=== PATIENT | female | born 1945 | race Caucasian/White ===

== ENCOUNTER 2017-04-24 00:03 | Day surgery (SDC) | payer MEDICARE ==
[2017-04-24] VITALS (13 sets, daily range): BP systolic 93–140; BP diastolic 43–71; PULSE 62–81; RESP 13–20; O2SAT 93–96
[~2017-04-24] VITALS: Ht 157.5 cm; Wt 88.6 kg
[~2017-04-24 00:03] MED LIST: CHOL400T PO; CREST10T PO; FLUO20CA25 PO; LIDO IV; LISI-567 PO; METO25TA6 PO; METO50TA3 PO; NITR0.4T6 SL; OXYC1TAB24 PO; PANT20TA2 PO; TRAM50TA2 PO; WARF4TAB6 PO
[2017-04-24 08:21] LABS: BASOPHILS % (AUTO) 0.3 % (0-3); EOSINOPHILS % (AUTO) 1.6 % (0-5); MONOCYTES % (AUTO) 7.7 % (4-12); Mean Corpuscular Hemoglobin 27.8 pg (27.0-35.0); NEUTROPHILS % (AUTO) 82.8 % (40-74); Platelet Count 194 bil/L (150-400)
[2017-04-24 08:39] LABS: INR 1.03 ratio
[2017-04-24] MEDS ORDERED: ONDA4SOL PO (08:47)
[2017-04-24] MEDS ORDERED: Ondansetron 2 mg/mL 2 mL Inj IVPUSH PRN (09:10)
[2017-04-24] MEDS ORDERED: Heparin 10,000 Unit/1,000 mL NS Premix IV ONE (09:37)
[2017-04-24] MEDS ORDERED: Nitroglycerin 50,000 mcg/250 mL D5W Premix IV ONE (09:37)
[2017-04-24] MEDS ORDERED: Heparin 1,000 Unit/mL 10 mL Inj ONE ×2 (09:37→10:51)
[2017-04-24] MEDS ORDERED: Heparin 1,000 Units/500 mL NS Premix IV ONE (09:37)
--- NOTE | 2017-04-24 09:44 | NUR ---
Pre heart cath.- Patient arrived to [facility] with . Alert and oriented. Denies complaints. NPO since last night except for meds. Explained procedure and plan of care.
[2017-04-24] MEDS ORDERED: fentaNYL-PF 50 mCg/mL 2 mL Inj ONE (10:06)
[2017-04-24] MEDS ORDERED: Atropine 1 mg/10 mL (Code) Syringe ONE (10:53)
--- NOTE | 2017-04-24 11:05 | PCM.CVCATH ---
Cardiac Cath Report Date of Service Apr 24, 2017 Primary Indication Angina, abnormal stress test Procedure coronary angiography, left heart cath Vascular Access Right radial artery using 5 Fr sheath, closure with TR band. Diagnostic Catheters Left main: [place] 4.0, 5 Fr RCA: [place] 4.0, 5 Fr Procedure Details Coronary angiography details: The patient was brought to the cardiac catheterization lab in the fasting state. Patient was laid supine on the cardiac catheterization table and the right forearm was prepped and draped in the usual sterile fashion. One percent Xylocaine was infiltrated over the right radial artery. Vascular access was then achieved under ultrasound guidance. Guide wire was used to advance the catheter through the sheath and up into aortic sinuses. After coronary angiography was completed, guide wire was advanced through the catheter ahead of the tip of the catheter and the guide wire along with the catheter were pulled together out of the sheath. Medications/Fluoro Time Medications/fluoroscopy/contrast administered: see total in cath tech report Blood loss: 5 mls Findings 1) Coronary angiography: Right dominance a. Left main is short and normal caliber with mild luminal irregularities. b. LAD is normal caliber wrap around vessel with mild luminal irregularities. The ostium of first diagonal artery has 30-40% stenosis. c. LCx is medium caliber with mild luminal irregularities. LCx gives rise to three obtuse marginal (OM) arteries. The high OM1 and OM2 are small caliber with diffuse disease. The OM3 is a medium caliber vessel with 80-90% tubular stenosis proximally. d. RCA is normal caliber with 80% stenosis proximally and a patent mid-RCA stent. 2) Left Heart catheterization: a. LVEDP is mildly elevated at 15-20 mmHg. b. No significant transaortic gradient on catheter pull-back. Complications There were no periprocedural complications identified. 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 Recommendations Refer to Interventional cardiology for PCI of the proximal RCA and consider staged PCI of the 3rd obtuse marginal artery if symptoms persist. copies to: Emiliana Layne MD,Seema Hendrickson MD Apr 24, 2017 11:05
--- NOTE | 2017-04-24 13:00 | NUR ---
On entering room to check on patient for patient's promary nurse, observed large hematoma proximal to TR band. Patient said said she was about to call for a nurse as she and her observed the swelling and she is feeling some pain and tightness in her upper forearm. Dr Stuart closeby and called into room.Instructed by Dr Stuart to remove TR band and give protamine [address] Dedra brewer.
[2017-04-24] MEDS ORDERED: Protamine Sulfate 10 mg/mL 5 mL Inj ONE (13:05)
--- NOTE | 2017-04-24 13:10 | NUR ---
Dr Colmenares informed and that Dr Stuart has given us some orders.
--- NOTE | 2017-04-24 13:21 | DI95 ---
[place] [address] INTERVENTIONAL CARDIAC CATHETERIZATION PATIENT: ANNETTA CULLEN : 1945 MR#: [id number] ADMIT: 04/24/2017 JOB ID: [id number] DATE: 04/24/2017 PATIENT PROFILE: The patient is a 72-year-old lady with history of paroxysmal atrial fibrillation , on chronic anticoagulation. She presented with angina pectoris. PROCEDURE: Balloon angioplasty and stenting to the proximal right coronary artery. VASCULAR CLOSURE DEVICE: None. COMPLICATION: None. METHOD: Following diagnostic coronary angiogram performed by Dr. Francois, additional heparin of 7,000 units were given. Aspirin 325 mg and Brilinta 180 mg were given. A 5-[place] JR-4 guide was advanced to the right coronary ostium. A Run-through wire was placed inside the right coronary artery. The proximal right coronary artery lesion was pre-dilated with a 2.0 x 15 mm balloon. A Xience 3.0 x 12 mm stent was placed inside the lesion and deployed at 10 atmospheres for 20 seconds. Final angiogram was obtained. Following sheath removal, hemostasis was achieved by using a TR band. The patient tolerated the procedure well. She was transferred to [facility] in good condition. TOTAL CONTRAST USED: 70 cc. FLUOROSCOPY TIME: 6.5 minutes. RESULTS: Successful balloon angioplasty and stenting to the tight proximal right coronary artery lesion by deploying one drug eluting stent (3.0 x 12 mm) to achieve an excellent angiographic result with JUNE-3 flow distally. SAHIL
[2017-04-24] MEDS ORDERED: ONDA-53 PO (15:43)
--- NOTE | 2017-04-24 15:43 | NUR ---
Hematoma- Right forearm is bruised and swollen with large hematoma that is outlined. Small amt. of blood noted at puncture site under tegaderm dressing. Patient has good sensation in extremity with strong radial pulse and capillary refill. Patient complaining of 5/10 pain in arm. Ice applied to area and arm elevated on pillow. Dr Colmenares here to see patient and instructed that she be on bedrest until 1700, and then can be up and ambulatory. If no further bleeding or complications with arm, than she can be discharged at 1800.
--- NOTE | 2017-04-24 18:11 | NUR ---
Pt up to walk w/assist, slight dizziness, denies visual change Fluids given, sat at bedside for 15 minutes, BP 112/76. To BR without any difficulty.
--- NOTE | 2017-04-24 18:33 | NUR ---
Discharge note- Patient up and ambulated to bathroom after initial feeling of dizziness subsided. Tolerated activity well without any further bleeding or swelling in right arm. Vital signs remained unchanged. Instructed patient on post arm approach heart cath activity restrictions. Ice bag and sling sent home with patient and info given to call doctor or go to nearest hospital if bleeding occurs. Patient discharged to home with spouse and personal belongings.
== END 2017-04-24 23:59 | disposition home or self-care (01) ==
LOC: SOUO 00:03
PROVIDERS: ATTEND Internal Medicine Cardiovascular Disease
DX: I25.119 Atherosclerotic heart disease of native coronary artery with unspecified angina pectoris (principal); I48.0 Paroxysmal atrial fibrillation; Z95.5 Presence of coronary angioplasty implant and graft; Z95.0 Presence of cardiac pacemaker; I49.5 Sick sinus syndrome; I10 Essential (primary) hypertension; I34.0 Nonrheumatic mitral (valve) insufficiency; C34.32 Malignant neoplasm of lower lobe, left bronchus or lung; C90.30 Solitary plasmacytoma not having achieved remission; E78.5 Hyperlipidemia, unspecified; Z87.891 Personal history of nicotine dependence; Z79.01 Long term (current) use of anticoagulants
CPT/HCPCS: 36415; 80048; 85025; 85610; 93005; 93458; 99152; 99153; C1725; C1769; C1874; C1887; C1894; C9600; J1644; J2250; J2720; J3010; Q9967